=== PATIENT | male | born 2000 | race Caucasian/White ===

== ENCOUNTER → 2019-02-01 14:09 | Outpatient (CLI) | payer OTHER, SELFPAY ==
[2019-02-01 15:37] LABS: Cholesterol 221 mg/dL (140-199); HDL Cholesterol 86 mg/dL (40-60); LDL Cholesterol Calculated 101 mg/dL (<100); Triglycerides 171 mg/dL (35-150)
== END ==
PROVIDERS: PCP Student in an Organized Health Care Education/Training Program; Visit Provider Student in an Organized Health Care Education/Training Program
DX: Z13.220 Encounter for screening for lipoid disorders (principal)
CPT/HCPCS: 36415; 80061

== ENCOUNTER → 2020-06-26 11:04 | Outpatient (CLI) | payer OTHER, SELFPAY ==
--- NOTE | 2020-06-26 11:04 | DI.US.S_ITS ---
PROCEDURE: US SCROTUM INDICATIONS: LEFT SCROTAL MASS TECHNIQUE: Real-time scanning was performed of the scrotum and testicles, with image documentation. Color and pulse Doppler interrogation was performed of both testicles. COMPARISON: None. FINDINGS: Right: Testicle is normal in size at 4.1 x 2.2 x 3.6 cm, and homogenous in echotexture. Epididymis is normal in overall size and morphology. There is a small right-sided hydrocele. Overlying scrotal skin is normal in thickness. Left: Testicle is normal in size at 4.3 x 2.2 x 2.9 cm, and homogeneous in echotexture. Epididymis is normal in overall size and morphology. There is a small left-sided hydrocele. Overlying scrotal skin is normal in thickness. The palpable area of clinical concern corresponds to the head of the left epididymis. Doppler: Color and pulse Doppler demonstrate normal and symmetric arterial flow in both testicles. Small bilateral hydroceles are seen. IMPRESSION: The area of palpable concern corresponds to the head of left epididymis. No intratesticular masses are seen. Small bilateral hydroceles. Small bilateral varicoceles. Dictated by: Paul Krueger M.D. on 06/26/2020 at 12:47 Approved by: Paul Krueger M.D. on 06/26/2020 at 12:49
== END ==
PROVIDERS: PCP Student in an Organized Health Care Education/Training Program; Referring Provider Student in an Organized Health Care Education/Training Program; Visit Provider Student in an Organized Health Care Education/Training Program
DX: N50.89 Other specified disorders of the male genital organs (principal); N43.3 Hydrocele, unspecified; I86.1 Scrotal varices
CPT/HCPCS: 76870

== ENCOUNTER → 2022-04-21 14:26 | Outpatient (CLI) | payer OTHER, SELFPAY ==
[2022-04-21 16:16] LABS: Add Manual Diff / Slide Review NO; Basophils Absolute Auto 0 /uL (0-100); Basophils Percent Auto 0.7 % (0-2); Eosinophils Absolute Auto 100 /uL (0-450); Hematocrit 43.1 % (41-53); Lymphocytes Absolute Auto 1800 /uL (1100-4500); Lymphocytes Percent Auto 29.9 % (25-40); Mean Corpuscular HGB Conc 34.9 % (30-36); Mean Corpuscular Hemoglobin 33.2 PG (26-34); Mean Corpuscular Volume 95.2 fL (80-100); Monocytes Absolute Auto 600 /uL (0-900); Monocytes Percent Auto 9.3 % (3-14); Neutrophils Absolute Auto 3600 /uL (1500-7000); Neutrophils Percent Auto 59.1 % (50-75); Platelet Count 219 X10^3/uL (150-400); Red Blood Cell Count 4.53 X10^6/uL (4.5-5.9); Red Cell Distribution Width 12.8 % (11.6-14.8); White Blood Cell Count 6.2 X10^3/uL (4.5-11.0)
[2022-04-21 17:22] LABS: BUN Creatinine Ratio 11.8 (6-22); Blood Urea Nitrogen 8 mg/dL (9-20); Calcium 9.3 mg/dL (8.4-10.2); Carbon Dioxide 25 mmol/L (22-32); Chloride 100 mmol/L (98-107); Estimated Glomerular Filt Rate > 60 mL/min (>60); Glucose 94 mg/dL (70-100); HEMOLYSIS < 15 (0-50); Potassium 3.9 mmol/L (3.4-5.1); Sodium 137 mmol/L (137-145)
[2022-04-23 12:18] LABS: QuantiFERON Mitogen Value >10.00 IU/mL (.); QuantiFERON TB Gold Plus Negative (Negative)
== END ==
PROVIDERS: PCP Student in an Organized Health Care Education/Training Program; Referring Provider Student in an Organized Health Care Education/Training Program; Visit Provider Student in an Organized Health Care Education/Training Program
DX: R61 Generalized hyperhidrosis (principal); Z91.89 Other specified personal risk factors, not elsewhere classified
CPT/HCPCS: 36415; 80048; 84443; 85025; 86480

== ENCOUNTER → 2025-10-08 12:32 | Outpatient (CLI) | payer OTHER, SELFPAY ==
[2025-10-08 13:29] LABS: Influenza A - CEPHEID Flu A NEGATIVE (NEGATIVE); Influenza B - CEPHEID Flu B NEGATIVE (NEGATIVE)
[2025-10-08 13:30] LABS: COVID-19 CEPHEID 4-PLEX PCR Negative (Negative)
== END ==
PROVIDERS: Visit Provider Physician Assistant
DX: R05.1 Acute cough (principal)
CPT/HCPCS: 87637